=== PATIENT | female | born 1985 | race Caucasian/White ===

== ENCOUNTER 2017-04-25 02:23 | Emergency (ER) | payer MEDICAID ==
[~2017-04-25] VITALS: Ht 165.1 cm; Wt 150.8 kg
[2017-04-25 02:27] VITALS: Ht 165.1 cm; Wt 150.8 kg
--- NOTE | 2017-04-25 02:33 | ERA ---
ER Documentation Chief Complaint Date/Time DATE: 04/25/17 TIME: 02:32 Chief Complaint Umbilical irritation HPI The patient is a 31-year-old female, presenting to the ER because of umbilical irritation and discharge for 1 day. She denies similar symptoms previously, denies fever, chills, neck pain, chest pain, abdominal pain, vomiting, dysuria, diarrhea. She does not smoke nor drink Past medical history: None Past surgical history: One ROS All systems reviewed and are negative except as per history of present illness. Medications Home Meds Active Scripts Bacitracin* (Bacitracin Oint (UD)*) 1 Applic Oint, 1 APPLIC TOP BID, #10 PKT APPLY TO Prov:CHHAYA MERCEDES MD 04/25/17 Allergies Allergies: Coded Allergies: No Known Allergies (Verified Allergy, Unknown, 04/25/17) Physical Exam Vitals Vital Signs Date Time Temp Pulse Resp B/P Pulse Ox O2 Delivery O2 Flow Rate FiO2 04/25/17 02:27 99.9 89 20 132/78 100 Physical Exam Const: No acute distress. Head: Atraumatic. Eyes: Normal Conjunctiva. ENT: Normal External Ears, Nose and Mouth. Neck: Full range of motion. No meningismus. Resp: Clear to auscultation bilaterally. Cardio: Regular rate and rhythm. Abd: Soft, non distended, normal bowel sounds, non tender. Minimal umbilical excoriation, no discharge Skin: No petechiae or rashes. Back: No midline or flank tenderness. Ext: No cyanosis, or edema. Neur: Awake and alert. No focal deficit Psych: Normal Mood and Affect. Results 24 hrs Laboratory Tests Test 04/25/17 02:39 Bedside Urine pH (LAB) 6.0 Bedside Urine Protein (LAB) Negative Bedside Urine Glucose (UA) Negative Bedside Urine Ketones (LAB) Negative Bedside Urine Blood 2+ Bedside Urine Nitrite (LAB) Negative Bedside Urine Leukocyte Esterase (L Negative Procedures/MDM MEDICAL MAKING DECISION: The patient is a 31-year-old female, presenting with acute umbilical irritation. There is no signs for infection The differential diagnoses considered include but are not limited to cholelithiasis, cholecystitis, cystitis, pancreatitis, hepatitis, gastritis, peptic ulcer disease, gastric ulcer, appendicitis, diverticulitis, cholangitis, choledocholithiasis, partial small bowel obstruction. Departure Diagnosis: Primary Impression: Umbilical discharge Condition: Good Comments He was discharged with bacitracin ointment I discussed the findings with the patient. I advised the patient to follow-up with the primary physician in about 5-7 days, sooner if needed and return if any concern. The patient's blood pressure was elevated (>120/80) but appears stable without evidence of hypertension emergency or urgency. The patient was counseled about the risks of hypertension and urged to pursue outpatient monitoring and therapy within a week with their primary care physician. CHHAYA MERCEDES MD Apr 25, 2017 02:33
[2017-04-25 02:36] LABS: URINE BLOOD (Dip) POC 2+ (NEGATIVE)
[2017-04-25] MEDS ORDERED: BACITUD TOP (02:41)
[2017-04-26] MEDS ORDERED: CEPH-443 PO (15:00)
[2017-04-26] MEDS ORDERED: SULF1TAB31 PO (15:00)
[2017-04-26] MEDS ORDERED: IBUP-1542 PO (15:02)
== END 2017-04-25 02:48 | disposition home or self-care (01) ==
LOC: E/R 02:23
DX: R19.8 Other specified symptoms and signs involving the digestive system and abdomen (principal)
CPT/HCPCS: 81003; 99283

== ENCOUNTER 2017-04-26 14:16 | Emergency (ER) | payer MEDICAID ==
[~2017-04-26] VITALS: Ht 165.1 cm; Wt 150.0 kg
[~2017-04-26 14:16] MED LIST: BACITUD TOP
[2017-04-26 14:35] VITALS: Ht 165.1 cm; Wt 150.0 kg
[2017-04-26] MEDS ORDERED: SULF1TAB31 PO (15:00)
[2017-04-26] MEDS ORDERED: TRIMETHOPRIM/SULFAMETHOX (DS) TAB PO ONE (15:00)
[2017-04-26] MEDS ORDERED: CEPH-443 PO (15:00)
[2017-04-26] MEDS ORDERED: CEFTRIAXONE 1 GM INJ IM ONE (15:00)
[2017-04-26] MEDS ORDERED: IBUPROFEN 600 MG TAB PO ONE (15:00)
[2017-04-26] MEDS ORDERED: LIDOCAINE 1% (MDV) 20 ML INJ SC ONE (15:00)
[2017-04-26] MEDS ORDERED: IBUP-1542 PO (15:02)
--- NOTE | 2017-04-26 15:06 | ERD ---
ER Documentation Chief Complaint Date/Time DATE: 04/26/17 TIME: 15:03 Chief Complaint small amt of blood around belly button today HPI This 31-year-old female presents for recheck. She was seen last night for some discharge and redness around her umbilicus. She was prescribed antibiotic cream. Today she presents for some bleeding and discharge which is worsened as well as some surrounding redness. She has chills but no fevers. She denies vomiting, shortness of breath, additional symptoms ROS All systems reviewed and are negative except as per history of present illness. Medications Home Meds Active Scripts Ibuprofen* (Motrin*) 600 Mg Tab, 600 MG PO Q6, #15 TAB Prov:TYRON BLANCO MD 04/26/17 Sulfamethoxazole/Trimethoprim* (Bactrim Ds* Tablet) 1 Each Tablet, 1 TAB PO BID for 10 Days, #20 TAB Prov:TYRON BLANCO MD 04/26/17 Cephalexin* (Keflex*) 500 Mg Capsule, 500 MG PO QID for 10 Days, CAP Prov:TYRON BLANCO MD 04/26/17 Bacitracin* (Bacitracin Oint (UD)*) 1 Applic Oint, 1 APPLIC TOP BID, #10 PKT APPLY TO Prov:CHHAYA MERCEDES MD 04/25/17 Allergies Allergies: Coded Allergies: No Known Allergies (Verified Allergy, Unknown, 04/26/17) PMhx/Soc History of Surgery: Yes () Anesthesia Reaction: No Hx Neurological Disorder: No Hx Respiratory Disorders: No Hx Cardiac Disorders: No Hx Psychiatric Problems: No Hx Miscellaneous Medical Probl: Yes (OBESITY ) Hx Alcohol Use: No Hx Substance Use: No Hx Tobacco Use: No Smoking Status: Never smoker Physical Exam Vitals Vital Signs Date Time Temp Pulse Resp B/P Pulse Ox O2 Delivery O2 Flow Rate FiO2 04/26/17 14:35 98.4 89 18 170/72 100 Physical Exam Const: [] Alert, morbidly obese. Head: Atraumatic Eyes: Normal Conjunctiva ENT: Normal External Ears, Nose and Mouth. Neck: Full range of motion..~ No meningismus. Resp: Clear to auscultation bilaterally Cardio: Regular rate and rhythm, no murmurs Abd: Soft, non tender, non distended. Normal bowel sounds. There is some blanching erythema around the umbilicus approximately 5 cm. There is some cheesy discharge and some old blood and purulent material. There is no deep abdominal tenderness and no fluctuance. Skin: No petechiae or rashes Back: No midline or flank tenderness Ext: No cyanosis, or edema Neur: Awake and alert Psych: Normal Mood and Affect Results 24 hrs Current Medications Medications (Trade) Dose Ordered Sig/Bo Route PRN Reason Start Time Stop Time Status Last Admin Dose Admin Trimethoprim/ Sulfamethoxazole (Bactrim (Ds)) 1 tab ONCE ONCE PO 04/26/17 15:00 04/26/17 15:01 DC Ceftriaxone Sodium (Rocephin) 1 gm ONCE ONCE IM 04/26/17 15:00 04/26/17 15:01 DC Lidocaine (Xylocaine 1% (Mdv) 20 ml) 20 ml ONCE ONCE SC 04/26/17 15:00 04/26/17 15:01 DC Ibuprofen (Motrin) 600 mg ONCE ONCE PO 04/26/17 15:00 04/26/17 15:01 DC Procedures/MDM Patient has signs and symptoms of umbilical abscess which is spontaneously drained. There is some mild abdominal wall cellulitis. There is no evidence of acute abdomen, residual abscess for incision and drainage no signs of sepsis. Patient was given Rocephin 1 g IM here as well as Bactrim double strength by mouth. She will treated with Keflex and Bactrim at home instructions for recheck in 2 days for worsening redness, fevers, new worsening symptoms or should return sooner for worsening redness, vomiting, new or worsening symptoms. The patient was stable with no new complaints during the ER course. Clinically, there is no current evidence to suggest meningitis, sepsis, acute abdomen, pneumonia, acute coronary syndrome, pulmonary embolism, or any other emergent condition appearing to require further evaluation or hospitalization. The patient should certainly return for any new or worsening symptoms per the aftercare instructions. They should otherwise follow-up with her primary care doctor for reevaluation this week. Departure Diagnosis: Primary Impression: Abscess Condition: Stable Patient Instructions: Abscess, Antiobiotic Treatment Only Additional Instructions: Recheck in 2 days for worsening redness, fevers, new symptoms . TYRON BLANCO MD Apr 26, 2017 15:06
== END 2017-04-26 15:22 | disposition home or self-care (01) ==
LOC: FTE 14:16
DX: L02.216 Cutaneous abscess of umbilicus (principal); E66.9 Obesity, unspecified; Z68.43 Body mass index [BMI] 50.0-59.9, adult
CPT/HCPCS: 96372; J0696; Z7502; Z7610